=== PATIENT | female | born 1980 | race Caucasian/White ===

== ENCOUNTER → 2019-08-28 | Outpatient (REF) | payer MEDICARE, OTHER, MEDICAID | LOC: M LAB REF 18:50 | PROVIDERS: ATTEND Nurse Practitioner Family | DX: Z12.4 Encounter for screening for malignant neoplasm of cervix (principal) ==

== ENCOUNTER → 2019-08-28 | Outpatient (REF) | payer MEDICARE, OTHER, MEDICAID | LOC: M PLALAB 15:10 | PROVIDERS: ATTEND Nurse Practitioner Family | DX: Z12.4 Encounter for screening for malignant neoplasm of cervix (principal); Z53.8 Procedure and treatment not carried out for other reasons ==

== ENCOUNTER → 2019-08-28 | Outpatient (CLI) | payer MEDICARE, BC, MEDICAID ==
--- NOTE | 2019-08-28 16:13 | REPMRS ---
Patient History The patient states she had a clinical breast exam in 08/2019. Patient is nulliparous. No known family history of cancer. Taking hormonal contraceptives for 22 years beginning at age 17. 3D TOMOSYNTHESIS WAS PERFORMED. The [facility] lifetime risk for breast cancer is 14.7%. Digital Woman Screen Mammo: August 28, 2019 - Exam #: [id number] Bilateral CC and MLO view(s) were taken. Technologist: Julia Tang, Technologist No prior studies available for comparison. FINDINGS: The breast tissue is heterogeneously dense. This may lower the sensitivity of mammography. There is no evidence of cancer on this mammogram. Assessment: BI-RADS/ACR category 2 mammogram. Benign Findings. Recommendation Routine screening mammogram of both breasts in 1 year (for women over age 40). This mammogram was interpreted with the aid of an FDA-approved computer-aided dectection system. Electronically Signed By: Ermias Montanez MD 08/28/19 [id number]
== END ==
LOC: M WHC 14:58
PROVIDERS: ATTEND Nurse Practitioner Family
DX: Z01.419 Encounter for gynecological examination (general) (routine) without abnormal findings (principal); Z12.31 Encounter for screening mammogram for malignant neoplasm of breast; Z92.0 Personal history of contraception
CPT/HCPCS: 77063; 77067; G0101; G0123

== ENCOUNTER → 2020-09-01 | Outpatient (CLI) | payer MEDICARE, OTHER, MEDICAID ==
--- NOTE | 2020-09-01 16:18 | REPMRS ---
Patient History The patient states she had a clinical breast exam in August 2020. No known family history of cancer. Taking hormonal contraceptives for 22 years beginning at age 17. Digital Woman Screen Mammo: September 01, 2020 - Exam #: [id number] Bilateral CC and MLO view(s) were taken. Technologist: Celeste Benavides, Technologist Prior study comparison: August 28, 2019, bilateral digital woman screen mammo performed at [facility]. FINDINGS: There are scattered fibroglandular densities. The Volpara volumetric breast density category is:B. There has been no change in the appearance of the mammogram from the prior studies. There is a mild amount of scattered fibroglandular density which is fairly symmetric. There is no interval development of dominant mass, architectural distortion, or grouped microcalcification suggestive of malignancy. 3-D tomosynthesis shows no additional findings. Assessment: BI-RADS/ACR category 1 mammogram. Negative Mammogram. Recommendation Routine screening mammogram of both breasts in 1 year (for women over age 40). This patient's Lifetime Breast Cancer Risk is estimated at 14.5 %. This mammogram was interpreted with the aid of an FDA-approved computer-aided dectection system. Electronically Signed By: Pascual Oliver MD 09/01/20 [id number]
== END ==
LOC: M WHC 14:38
PROVIDERS: ATTEND Nurse Practitioner Family
DX: Z12.31 Encounter for screening mammogram for malignant neoplasm of breast (principal); Z92.0 Personal history of contraception

== ENCOUNTER → 2022-02-15 | Outpatient (CLI) | payer MEDICARE, OTHER, MEDICAID ==
[2022-02-15 14:01] LABS: BASO # 0.1 10^3/uL (0.0-0.2); EOS % 0.2 % (0.0-3.0); HEMATOCRIT 41.7 % (36.0-47.0); HEMOGLOBIN 13.8 g/dl (12.0-15.5); LYMPH # 1.3 10^3/uL (1.5-5.0); LYMPH % 22.9 % (24.0-44.0); MEAN CORPUSCULAR HEMOGLOBIN 33.2 pg (27.0-33.0); MEAN CORPUSCULAR HGB CONC 33.1 g/dl (32.0-36.5); MEAN CORPUSCULAR VOLUME 100.2 fl (80.0-96.0); MONO # 0.5 10^3/uL (0.0-0.8); NEUTROPHILS # 3.9 10^3/uL (1.5-8.5); NEUTROPHILS % 66.6 % (36.0-66.0); PLATELET COUNT, AUTOMATED 264 10^3/uL (150-450); RED BLOOD COUNT 4.16 10^6/uL (4.00-5.40); WHITE BLOOD COUNT 5.9 10^3/uL (4.0-10.0)
[2022-02-15 14:38] LABS: ALBUMIN 2.8 GM/DL (3.2-5.2); ALT/SGPT 21 U/L (12-78); BILIRUBIN,TOTAL 0.2 MG/DL (0.2-1.0); BLOOD UREA NITROGEN 11 MG/DL (7-18); CALCIUM LEVEL 9.1 MG/DL (8.5-10.1); CARBON DIOXIDE LEVEL 27 MEQ/L (21-32); CHLORIDE LEVEL 111 MEQ/L (98-107); CREATININE FOR GFR 0.88 MG/DL (0.55-1.30); FREE T4 1.19 NG/DL (0.76-1.46); GLOMERULAR FILTRATION RATE > 60.0 (>58); GLUCOSE, FASTING 96 MG/DL (70-100); POTASSIUM SERUM 4.2 MEQ/L (3.5-5.1); RHEUMATOID FACTOR QUANT < 10.0 IU/ML (<15.0); SODIUM LEVEL 144 MEQ/L (136-145); THYROID STIMULATING HORMONE 0.017 uIU/ML (0.358-3.740); TOTAL PROTEIN 6.6 GM/DL (6.4-8.2); VITAMIN B12 LEVEL 540 PG/ML (247-911)
[2022-02-15 14:51] LABS: ERYTHROCYTE SEDIMENTATION RATE 12 mm/hr (0-20)
[2022-02-19 14:27] LABS: FOLATE 18.7 NG/ML (>5.4)
[2022-02-28 23:06] LABS: ANTINUCLEAR ANTIBODIES DIRECT Negative (Negative); VITAMIN B1 LEVEL WHOLE BLOOD 132.7 nmol/L (66.5-200.0); VITAMIN B6,PYRIDOXAL PHOSPHATE 81.6 ug/L (3.4-65.2); VITAMIN E(ALPHA TOCOPHEROL) 12.4 mg/L (7.0-25.1); VITAMIN E(GAMMA TOCOPHEROL) 0.4 mg/L (0.5-5.5)
== END ==
LOC: M PLALAB 09:20
PROVIDERS: ATTEND Psychiatry & Neurology Neurology
DX: E07.9 Disorder of thyroid, unspecified (principal); E53.8 Deficiency of other specified B group vitamins; R41.3 Other amnesia

== ENCOUNTER → 2022-11-05 | Outpatient (CLI) | payer MEDICARE, MEDICAID, BC, OTHER ==
[2022-11-05 15:35] LABS: BASO # 0.1 10^3/uL (0.0-0.2); EOS % 0.3 % (0.0-3.0); HEMATOCRIT 43.5 % (36.0-47.0); HEMOGLOBIN 14.1 g/dl (12.0-15.5); LYMPH # 1.5 10^3/uL (1.5-5.0); LYMPH % 20.5 % (24.0-44.0); MEAN CORPUSCULAR HEMOGLOBIN 33.6 pg (27.0-33.0); MEAN CORPUSCULAR HGB CONC 32.4 g/dl (32.0-36.5); MEAN CORPUSCULAR VOLUME 103.6 fl (80.0-96.0); MONO # 0.7 10^3/uL (0.0-0.8); MONO % 10.4 % (2.0-8.0); NEUTROPHILS # 4.8 10^3/uL (1.5-8.5); NEUTROPHILS % 67.1 % (36.0-66.0); PLATELET COUNT, AUTOMATED 257 10^3/uL (150-450); WHITE BLOOD COUNT 7.1 10^3/uL (4.0-10.0)
[2022-11-05 16:07] LABS: ALBUMIN 2.7 G/DL (3.2-5.2); ALKALINE PHOSPHATASE 49 U/L (46-116); ALT/SGPT 12 U/L (7.0-40); AST/SGOT 20 U/L (<34); BILIRUBIN,TOTAL 0.3 MG/DL (0.3-1.2); BLOOD UREA NITROGEN 14 MG/DL (9-23); CALCIUM LEVEL 8.5 MG/DL (8.5-10.1); CARBON DIOXIDE LEVEL 33 MMOL/L (20-31); CHLORIDE LEVEL 101 MMOL/L (98-107); CREATININE FOR GFR 0.99 MG/DL (0.55-1.30); GLOMERULAR FILTRATION RATE > 60.0 (>58); GLUCOSE, FASTING 88 MG/DL (60-100); POTASSIUM SERUM 4.6 MMOL/L (3.5-5.1); SODIUM LEVEL 139 MMOL/L (136-145); TOTAL PROTEIN 6.4 G/DL (5.7-8.2)
== END ==
LOC: M PLALAB 12:08
PROVIDERS: ATTEND Psychiatry & Neurology Neurology
DX: G40.89 Other seizures (principal)

== ENCOUNTER 2023-10-27 10:50 | Inpatient (IN) | payer MEDICARE, BC, OTHER, MEDICAID ==
[~2023-10-27] VITALS: Ht 149.9 cm; Wt 68.8 kg
[2023-10-28 10:07] VITALS: BP 129/84; TEMP 98.2; O2SAT 96
[2023-10-28] MEDS ORDERED: ACETAMINOPHEN TAB 650MG DOSE (2X325MG) PO PRN (10:15)
[2023-10-28] MEDS ORDERED: MIRALAX *UNIT DOSE* 17GM PACKET PO PRN (10:15)
[2023-10-28] MEDS ORDERED: MED REC IN PROGRESS XX SCH (13:50)
[2023-10-28 14:00] VITALS: BP 126/77; TEMP 98.1; O2SAT 96
[2023-10-28] MEDS ORDERED: B-12100010 PO (14:36)
[2023-10-28] MEDS ORDERED: CALTTAB6 PO (14:36)
[2023-10-28] MEDS ORDERED: CITA20TA7 PO (14:36)
[2023-10-28] MEDS ORDERED: LEVO75TA4 PO (14:36)
[2023-10-28] MEDS ORDERED: VITA200012 PO (14:36)
[2023-10-28] MEDS ORDERED: THERTAB52 PO (14:36)
[2023-10-28] MEDS ORDERED: NORT0.5T2 PO (14:36)
[2023-10-28] MEDS ORDERED: HOME MED LIST COMPLETE! XX SCH (14:40)
[2023-10-28] MEDS: CitaloPRAM (CeleXA) 20 MG TAB PO SCH (16:46)
[2023-10-28] MEDS: NITROFURANTOIN (MACROBID) 100 MG CAP PO SCH (20:15)
[2023-10-28 20:17] VITALS: BP 105/57; TEMP 96.5; O2SAT 96
[2023-10-29] MEDS: LEVOTHYROXINE 75MCG TABLET (0.075MG) PO SCH (05:35)
[2023-10-29 05:37] VITALS: BP 140/78; TEMP 98; O2SAT 95
[2023-10-29] MEDS: CALCIUM/VITAMIN D 500 MG TAB PO SCH (07:40)
[2023-10-29] MEDS: CitaloPRAM (CeleXA) 20 MG TAB PO SCH (07:41)
[2023-10-29] MEDS: ASPIRIN 81MG ENTERIC TABLET PO SCH (07:41)
[2023-10-29] MEDS: CYANOCOBALAMIN 500 MCG TAB PO SCH (07:41)
[2023-10-29] MEDS: MULTIVITAMINS/MINERALS THERAP 1 TAB PO SCH (07:41)
[2023-10-29] MEDS: ATORVASTATIN 20 MG TAB PO SCH (07:41)
[2023-10-29] MEDS: NITROFURANTOIN (MACROBID) 100 MG CAP PO SCH ×2 (07:41→20:10)
[2023-10-29] MEDS: ENOXAPARIN 40MG/0.4ML SYRINGE (J1650 PER 10MG) SC SCH (07:42)
[2023-10-29 07:55] LABS: BASO # 0.1 10^3/uL (0.0-0.2); BASO % 2.1 % (0.0-1.0); EOS # 0.1 10^3/uL (0.0-0.5); EOS % 2.7 % (0.0-3.0); HEMATOCRIT 40.3 % (36.0-47.0); HEMOGLOBIN 13.3 g/dl (12.0-15.5); LYMPH # 1.5 10^3/uL (1.5-5.0); LYMPH % 28.5 % (24.0-44.0); MEAN CORPUSCULAR HEMOGLOBIN 33.8 pg (27.0-33.0); MEAN CORPUSCULAR VOLUME 102.5 fl (80.0-96.0); MONO # 0.7 10^3/uL (0.0-0.8); MONO % 13.3 % (2.0-8.0); NEUTROPHILS # 2.8 10^3/uL (1.5-8.5); NEUTROPHILS % 52.8 % (36.0-66.0); PLATELET COUNT, AUTOMATED 268 10^3/uL (150-450); RED BLOOD COUNT 3.93 10^6/uL (4.00-5.40); WHITE BLOOD COUNT 5.3 10^3/uL (4.0-10.0)
[2023-10-29 08:14] LABS: BLOOD UREA NITROGEN 19 MG/DL (9-23); CALCIUM LEVEL 8.1 MG/DL (8.5-10.1); CARBON DIOXIDE LEVEL 26 MMOL/L (20-31); CHLORIDE LEVEL 110 MMOL/L (98-107); CREATININE FOR GFR 0.89 MG/DL (0.55-1.30); GLOMERULAR FILTRATION RATE > 60.0 (>58); GLUCOSE, FASTING 96 MG/DL (60-100); POTASSIUM SERUM 4.3 MMOL/L (3.5-5.1); SODIUM LEVEL 142 MMOL/L (136-145)
[2023-10-29] MEDS ORDERED: estradioL 0.5MG HALF-TAB PO SCH (09:00)
[2023-10-29 14:00] VITALS: BP 98/58; TEMP 97.4; O2SAT 95
[2023-10-29 20:00] VITALS: BP 104/58; TEMP 98.4; O2SAT 97
[2023-10-30 06:40] VITALS: BP 113/69; TEMP 98.5; O2SAT 94
[2023-10-30] MEDS: LEVOTHYROXINE 75MCG TABLET (0.075MG) PO SCH (06:41)
[2023-10-30] MEDS: ENOXAPARIN 40MG/0.4ML SYRINGE (J1650 PER 10MG) SC SCH (07:29)
[2023-10-30] MEDS: ASPIRIN 81MG ENTERIC TABLET PO SCH (07:30)
[2023-10-30] MEDS: MULTIVITAMINS/MINERALS THERAP 1 TAB PO SCH (07:30)
[2023-10-30] MEDS: CALCIUM/VITAMIN D 500 MG TAB PO SCH (07:30)
[2023-10-30] MEDS: NITROFURANTOIN (MACROBID) 100 MG CAP PO SCH ×2 (07:30→20:06)
[2023-10-30] MEDS: CitaloPRAM (CeleXA) 20 MG TAB PO SCH (07:30)
[2023-10-30] MEDS: ATORVASTATIN 20 MG TAB PO SCH (07:30)
[2023-10-30] MEDS: CYANOCOBALAMIN 500 MCG TAB PO SCH (07:30)
[2023-10-30 14:00] VITALS: BP 103/59; TEMP 97.9; O2SAT 94
[2023-10-30 20:00] VITALS: BP 122/73; TEMP 99; O2SAT 95
[2023-10-31] MEDS: LEVOTHYROXINE 75MCG TABLET (0.075MG) PO SCH (05:52)
[2023-10-31 06:00] VITALS: BP 112/66; TEMP 99; O2SAT 96
[2023-10-31 06:36] LABS: HEMATOCRIT 42.5 % (36.0-47.0); HEMOGLOBIN 13.9 g/dl (12.0-15.5); MEAN CORPUSCULAR HEMOGLOBIN 33.9 pg (27.0-33.0); MEAN CORPUSCULAR HGB CONC 32.7 g/dl (32.0-36.5); MEAN CORPUSCULAR VOLUME 103.7 fl (80.0-96.0); PLATELET COUNT, AUTOMATED 306 10^3/uL (150-450); WHITE BLOOD COUNT 5.8 10^3/uL (4.0-10.0)
[2023-10-31] MEDS: CALCIUM/VITAMIN D 500 MG TAB PO SCH (08:18)
[2023-10-31] MEDS: CYANOCOBALAMIN 500 MCG TAB PO SCH (08:18)
[2023-10-31] MEDS: ENOXAPARIN 40MG/0.4ML SYRINGE (J1650 PER 10MG) SC SCH (08:18)
[2023-10-31] MEDS: NITROFURANTOIN (MACROBID) 100 MG CAP PO SCH (08:18)
[2023-10-31] MEDS: CitaloPRAM (CeleXA) 20 MG TAB PO SCH (08:18)
[2023-10-31] MEDS: ATORVASTATIN 20 MG TAB PO SCH (08:18)
[2023-10-31] MEDS: MULTIVITAMINS/MINERALS THERAP 1 TAB PO SCH (08:18)
[2023-10-31] MEDS: ASPIRIN 81MG ENTERIC TABLET PO SCH (08:18)
[2023-10-31 14:00] VITALS: BP 102/53; TEMP 98.4; O2SAT 95
[2023-10-31 20:00] VITALS: BP 119/57; TEMP 98.4; O2SAT 96
[2023-11-01 06:00] VITALS: BP 112/59; TEMP 97.9; O2SAT 95
[2023-11-01] MEDS: LEVOTHYROXINE 75MCG TABLET (0.075MG) PO SCH (06:06)
[2023-11-01] MEDS: CYANOCOBALAMIN 500 MCG TAB PO SCH (08:29)
[2023-11-01] MEDS: ASPIRIN 81MG ENTERIC TABLET PO SCH (08:29)
[2023-11-01] MEDS: ATORVASTATIN 20 MG TAB PO SCH (08:29)
[2023-11-01] MEDS: CALCIUM/VITAMIN D 500 MG TAB PO SCH (08:29)
[2023-11-01] MEDS: ENOXAPARIN 40MG/0.4ML SYRINGE (J1650 PER 10MG) SC SCH (08:29)
[2023-11-01] MEDS: CitaloPRAM (CeleXA) 20 MG TAB PO SCH (08:29)
[2023-11-01] MEDS: MULTIVITAMINS/MINERALS THERAP 1 TAB PO SCH (08:29)
[2023-11-01 14:00] VITALS: BP 124/79; TEMP 97.5; O2SAT 97
[2023-11-01 20:00] VITALS: BP 119/58; TEMP 98.3; O2SAT 95
[2023-11-02] MEDS: LEVOTHYROXINE 75MCG TABLET (0.075MG) PO SCH (05:07)
[2023-11-02 06:00] VITALS: BP 126/74; TEMP 98.2; O2SAT 95
[2023-11-02] MEDS: CitaloPRAM (CeleXA) 20 MG TAB PO SCH (07:14)
[2023-11-02] MEDS: ATORVASTATIN 20 MG TAB PO SCH (07:14)
[2023-11-02] MEDS: MULTIVITAMINS/MINERALS THERAP 1 TAB PO SCH (07:14)
[2023-11-02] MEDS: CALCIUM/VITAMIN D 500 MG TAB PO SCH (07:14)
[2023-11-02] MEDS: ASPIRIN 81MG ENTERIC TABLET PO SCH (07:15)
[2023-11-02] MEDS: CYANOCOBALAMIN 500 MCG TAB PO SCH (07:15)
[2023-11-02] MEDS: ENOXAPARIN 40MG/0.4ML SYRINGE (J1650 PER 10MG) SC SCH (07:15)
[2023-11-02 14:00] VITALS: BP 105/64; TEMP 98.3; O2SAT 95
[2023-11-02 20:00] VITALS: BP 115/65; TEMP 98.2; O2SAT 96
[2023-11-03 05:50] VITALS: BP 107/59; TEMP 98.5; O2SAT 96
[2023-11-03] MEDS: LEVOTHYROXINE 75MCG TABLET (0.075MG) PO SCH (05:58)
[2023-11-03 06:06] LABS: HEMATOCRIT 40.4 % (36.0-47.0); HEMOGLOBIN 13.3 g/dl (12.0-15.5); MEAN CORPUSCULAR HGB CONC 32.9 g/dl (32.0-36.5); MEAN CORPUSCULAR VOLUME 103.3 fl (80.0-96.0); PLATELET COUNT, AUTOMATED 278 10^3/uL (150-450); RED BLOOD COUNT 3.91 10^6/uL (4.00-5.40); WHITE BLOOD COUNT 6.2 10^3/uL (4.0-10.0)
[2023-11-03] MEDS: ENOXAPARIN 40MG/0.4ML SYRINGE (J1650 PER 10MG) SC SCH (07:31)
[2023-11-03] MEDS: CALCIUM/VITAMIN D 500 MG TAB PO SCH (07:32)
[2023-11-03] MEDS: MULTIVITAMINS/MINERALS THERAP 1 TAB PO SCH (07:32)
[2023-11-03] MEDS: ASPIRIN 81MG ENTERIC TABLET PO SCH (07:32)
[2023-11-03] MEDS: CYANOCOBALAMIN 500 MCG TAB PO SCH (07:32)
[2023-11-03] MEDS: ATORVASTATIN 20 MG TAB PO SCH (07:32)
[2023-11-03] MEDS: CitaloPRAM (CeleXA) 20 MG TAB PO SCH (07:32)
[2023-11-03 14:00] VITALS: BP 109/59; TEMP 97.1; O2SAT 96
[2023-11-03 19:47] VITALS: BP 121/55; TEMP 98.8; O2SAT 93
[2023-11-04 05:27] VITALS: BP 121/72; TEMP 97.5; O2SAT 95
[2023-11-04] MEDS: LEVOTHYROXINE 75MCG TABLET (0.075MG) PO SCH (06:15)
[2023-11-04] MEDS ORDERED: ATOR1TAB21 PO (08:24)
[2023-11-04] MEDS ORDERED: ASPI81TAEC PO (08:24)
[2023-11-04] MEDS: ASPIRIN 81MG ENTERIC TABLET PO SCH (08:35)
[2023-11-04] MEDS: CitaloPRAM (CeleXA) 20 MG TAB PO SCH (08:36)
[2023-11-04] MEDS: ENOXAPARIN 40MG/0.4ML SYRINGE (J1650 PER 10MG) SC SCH (08:36)
[2023-11-04] MEDS: CYANOCOBALAMIN 500 MCG TAB PO SCH (08:36)
[2023-11-04] MEDS: ATORVASTATIN 20 MG TAB PO SCH (08:36)
[2023-11-04] MEDS: CALCIUM/VITAMIN D 500 MG TAB PO SCH (08:36)
[2023-11-04] MEDS: MULTIVITAMINS/MINERALS THERAP 1 TAB PO SCH (08:36)
[2023-11-04] MEDS ORDERED: NORT0.5T2 PO (11:21)
== END 2023-11-04 11:50 | disposition home or self-care (01) | DRG 65 ==
LOC: M PM&R 10-28 09:31
PROVIDERS: ADMIT Student in an Organized Health Care Education/Training Program; ATTEND Physical Medicine & Rehabilitation
DX: I63.9 Cerebral infarction, unspecified (principal); N39.0 Urinary tract infection, site not specified; Q21.12 Patent foramen ovale; E03.9 Hypothyroidism, unspecified; B96.20 Unspecified Escherichia coli [E. coli] as the cause of diseases classified elsewhere; F32.A Depression, unspecified; Q90.9 Down syndrome, unspecified; N92.6 Irregular menstruation, unspecified; G40.A09 Absence epileptic syndrome, not intractable, without status epilepticus; Z79.899 Other long term (current) drug therapy; Z79.82 Long term (current) use of aspirin

== ENCOUNTER 2023-11-22 10:28 | Emergency (ER) | payer MEDICARE, BC, OTHER, MEDICAID ==
[~2023-11-22 10:28] MED LIST: ASPI81TAEC PO; ATOR1TAB21 PO; B-12100010 PO; CALTTAB6 PO; CITA20TA7 PO; LEVO75TA4 PO; NORT0.5T2 PO; THERTAB52 PO; VITA200012 PO
[2023-11-22 12:20] LABS: BASO # 0.1 10^3/uL (0.0-0.2); BASO % 1.8 % (0.0-1.0); EOS # 0.1 10^3/uL (0.0-0.5); EOS % 1.2 % (0.0-3.0); HEMATOCRIT 42.6 % (36.0-47.0); LYMPH # 1.7 10^3/uL (1.5-5.0); LYMPH % 29.3 % (24.0-44.0); MEAN CORPUSCULAR HEMOGLOBIN 33.6 pg (27.0-33.0); MEAN CORPUSCULAR HGB CONC 32.9 g/dl (32.0-36.5); MEAN CORPUSCULAR VOLUME 102.2 fl (80.0-96.0); MONO # 0.7 10^3/uL (0.0-0.8); MONO % 11.5 % (2.0-8.0); NEUTROPHILS # 3.2 10^3/uL (1.5-8.5); NEUTROPHILS % 55.8 % (36.0-66.0); PLATELET COUNT, AUTOMATED 233 10^3/uL (150-450); RED BLOOD COUNT 4.17 10^6/uL (4.00-5.40); WHITE BLOOD COUNT 5.6 10^3/uL (4.0-10.0)
[2023-11-22 12:44] LABS: BLOOD UREA NITROGEN 13 MG/DL (9-23); CALCIUM LEVEL 9.5 MG/DL (8.5-10.1); CARBON DIOXIDE LEVEL 32 MMOL/L (20-31); CHLORIDE LEVEL 107 MMOL/L (98-107); CREATININE FOR GFR 0.98 MG/DL (0.55-1.30); GLOMERULAR FILTRATION RATE > 60.0 (>58); GLUCOSE, FASTING 84 MG/DL (60-100); POTASSIUM SERUM 3.8 MMOL/L (3.5-5.1); SODIUM LEVEL 142 MMOL/L (136-145)
[2023-11-22 15:01] VITALS: BP 131/66; TEMP 97; O2SAT 98
== END 2023-11-22 15:23 | disposition home or self-care (01) ==
LOC: M ED 10:28
DX: Z45.09 Encounter for adjustment and management of other cardiac device (principal); Z86.73 Personal history of transient ischemic attack (TIA), and cerebral infarction without residual deficits; Z88.1 Allergy status to other antibiotic agents; Z88.2 Allergy status to sulfonamides; Z88.8 Allergy status to other drugs, medicaments and biological substances; Z86.79 Personal history of other diseases of the circulatory system; Z79.82 Long term (current) use of aspirin; Z79.810 Long term (current) use of selective estrogen receptor modulators (SERMs); Z79.02 Long term (current) use of antithrombotics/antiplatelets; Z79.899 Other long term (current) drug therapy

== ENCOUNTER → 2023-12-01 | Outpatient (RCR) | payer MEDICARE, BC, OTHER, MEDICAID | LOC: M OT 11-07 11:46 → M ST 11-18 13:30 → M OT 11-25 12:36 → M ST 12:09 | PROVIDERS: ATTEND Student in an Organized Health Care Education/Training Program | DX: I69.222 Dysarthria following other nontraumatic intracranial hemorrhage (principal) ==

== ENCOUNTER 2023-12-28 12:36 | Outpatient (RCR) | payer MEDICARE, BC, OTHER, MEDICAID | END 2024-01-01 | LOC: M OT 12:36 → M ST 12:36 | PROVIDERS: ATTEND Student in an Organized Health Care Education/Training Program | DX: I63.9 Cerebral infarction, unspecified (principal) ==

== ENCOUNTER 2024-01-17 08:50 | Outpatient (RCR) | payer MEDICARE, BC, OTHER, MEDICAID | END 2024-01-31 | LOC: M ST 08:50 | PROVIDERS: ATTEND Student in an Organized Health Care Education/Training Program | DX: I63.9 Cerebral infarction, unspecified (principal) ==

== ENCOUNTER → 2024-02-06 | Outpatient (CLI) | payer MEDICARE, BC, MEDICAID | LOC: M LAB 14:58 | PROVIDERS: ATTEND Nurse Practitioner Family | DX: E03.9 Hypothyroidism, unspecified (principal) ==

== ENCOUNTER → 2024-06-29 | Outpatient (CLI) | payer MEDICARE, BC, MEDICAID | LOC: M WUC 09:25 | PROVIDERS: ATTEND Physician Assistant | DX: Q90.9 Down syndrome, unspecified (principal) ==

== ENCOUNTER 2024-08-08 14:42 | Emergency (ER) | payer MEDICARE, BC, MEDICAID ==
[~2024-08-08] VITALS: Ht 152.4 cm; Wt 70.9 kg
[2024-08-08 16:53] VITALS: TEMP 98.2
[2024-08-08] MEDS ORDERED: LAMO100T3 (16:58)
[2024-08-08] MEDS ORDERED: LAMO25TA4 (16:58)
[2024-08-08] MEDS ORDERED: VITATAB31 (16:58)
[2024-08-08] MEDS ORDERED: CLOP75TA2 (16:58)
[2024-08-08] MEDS: ALBUTEROL SULFATE 2.5MG/0.5ML INH NEB SOLN INH ONE (18:00)
[2024-08-08] MEDS: IPRATROPIUM 0.5MG/ALBUTEROL 2.5MG INH SOL UD 3ML (DUONEB) NEB ONE (18:00)
[2024-08-08] MEDS ORDERED: ISOVUE-370 76% 100ML VIAL As Ordered ONE (18:17)
[2024-08-08 18:19] LABS: BASO # 0.1 10^3/uL (0.0-0.2); BASO % 1.8 % (0.0-1.0); EOS # 0.1 10^3/uL (0.0-0.5); EOS % 0.9 % (0.0-3.0); HEMATOCRIT 36.8 % (36.0-47.0); HEMOGLOBIN 12.3 g/dl (12.0-15.5); LYMPH # 1.7 10^3/uL (1.5-5.0); LYMPH % 23.6 % (24.0-44.0); MEAN CORPUSCULAR HEMOGLOBIN 32.2 pg (27.0-33.0); MEAN CORPUSCULAR HGB CONC 33.4 g/dl (32.0-36.5); MEAN CORPUSCULAR VOLUME 96.3 fl (80.0-96.0); MONO # 0.9 10^3/uL (0.0-0.8); MONO % 13.4 % (2.0-8.0); NEUTROPHILS # 4.2 10^3/uL (1.5-8.5); PLATELET COUNT, AUTOMATED 256 10^3/uL (150-450); RED BLOOD COUNT 3.82 10^6/uL (4.00-5.40)
[2024-08-08 18:44] LABS: BILIRUBIN,DIRECT 0.2 MG/DL (<0.4); BILIRUBIN,TOTAL 0.5 MG/DL (0.3-1.2); CALCIUM LEVEL 10.1 MG/DL (8.5-10.1); CK-MB VALUE MASS 1.7 NG/ML (<3.6); CREATININE FOR GFR 1.43 MG/DL (0.55-1.30); GLOMERULAR FILTRATION RATE 42.2 (>58); MB/CK RELATIVE INDEX 0.95 (< OR =4); POTASSIUM SERUM 3.6 MMOL/L (3.5-5.1); TOTAL PROTEIN 7.2 G/DL (5.7-8.2)
[2024-08-08 18:47] LABS: THYROXINE (T4) 5.9 UG/DL (4.5-10.9)
[2024-08-08 18:48] LABS: THYROID STIMULATING HORMONE 0.062 uIU/ML (0.55-4.78)
[2024-08-08 18:53] LABS: PROCALCITONIN 0.06 ng/ml
[2024-08-08 19:55] LABS: MB/CK RELATIVE INDEX 0.62 (< OR =4)
[2024-08-08 21:20] VITALS: BP 136/86; O2SAT 100
[2024-08-08] MEDS: ACETAMINOPHEN 325 MG TAB PO ONE (22:01)
== END 2024-08-08 22:07 | disposition home or self-care (01) ==
LOC: EDSEX 14:42 → M ED 14:42 → EDBD 14:42 → M ED 22:07
DX: R07.9 Chest pain, unspecified (principal); R06.00 Dyspnea, unspecified; I45.81 Long QT syndrome; Q90.9 Down syndrome, unspecified; G40.909 Epilepsy, unspecified, not intractable, without status epilepticus; E03.9 Hypothyroidism, unspecified; F41.9 Anxiety disorder, unspecified; Z79.82 Long term (current) use of aspirin; Z79.02 Long term (current) use of antithrombotics/antiplatelets; Z79.899 Other long term (current) drug therapy
CPT/HCPCS: 36415; 70450; 71045; 71275; 80047; 80048; 80076; 82550; 82553; 83605; 83880; 84145; 84436; 84443; 84484; 85025; 87040; 87486; 87581; 87633; 87798; 93005; 93041; 93970; 94640; 94760; 99285; Q9967

== ENCOUNTER → 2024-10-17 | Outpatient (REF) | payer MEDICARE, BC, MEDICAID ==
[~2024-10-17] MED LIST changes: +CLOP75TA2; +LAMO100T3; +LAMO25TA4; +VITATAB31
[2024-10-17 17:12] LABS: ALBUMIN 3.1 G/DL (3.2-5.2); ALKALINE PHOSPHATASE 142 U/L (35-104); ALT/SGPT 14 U/L (7.0-40); AST/SGOT 22 U/L (<34); BASO # 0.1 10^3/uL (0.0-0.2); BASO % 1.8 % (0.0-1.0); BILIRUBIN,TOTAL 0.4 MG/DL (0.3-1.2); BLOOD UREA NITROGEN 17 MG/DL (9-23); CALCIUM LEVEL 9.1 MG/DL (8.5-10.1); CARBON DIOXIDE LEVEL 31 MMOL/L (20-31); CHLORIDE LEVEL 104 MMOL/L (98-107); CHOLESTEROL LEVEL 118 MG/DL (<200); CHOLESTEROL RISK RATIO 2.41 (<5); CREATININE FOR GFR 0.98 MG/DL (0.55-1.30); EOS # 0.2 10^3/uL (0.0-0.5); FREE T4 1.13 NG/DL (0.89-1.76); GLOMERULAR FILTRATION RATE > 60.0 (>58); GLUCOSE, FASTING 96 MG/DL (60-100); HDL CHOLESTEROL 48.9 MG/DL (>40); HEMATOCRIT 39.2 % (36.0-47.0); HEMOGLOBIN 12.7 g/dl (12.0-15.5); LDL CHOLESTEROL 54.1 MG/DL (<100); LYMPH # 1.4 10^3/uL (1.5-5.0); LYMPH % 28.2 % (24.0-44.0); MEAN CORPUSCULAR HEMOGLOBIN 32.1 pg (27.0-33.0); MEAN CORPUSCULAR HGB CONC 32.4 g/dl (32.0-36.5); MONO # 0.5 10^3/uL (0.0-0.8); MONO % 10.2 % (2.0-8.0); NEUTROPHILS # 2.8 10^3/uL (1.5-8.5); NEUTROPHILS % 56.4 % (36.0-66.0); NON-HDL-C 69.1 MG/DL; PLATELET COUNT, AUTOMATED 254 10^3/uL (150-450); POTASSIUM SERUM 3.9 MMOL/L (3.5-5.1); RED BLOOD COUNT 3.96 10^6/uL (4.00-5.40); SODIUM LEVEL 143 MMOL/L (136-145); THYROID STIMULATING HORMONE 0.024 uIU/ML (0.55-4.78); TOTAL PROTEIN 6.7 G/DL (5.7-8.2); TRIGLYCERIDES LEVEL 75 MG/DL (<150)
[2024-10-17 17:25] LABS: HEMOGLOBIN A1c 5.2 % (4.0-6.0)
== END ==
LOC: M SFHCCLAY 13:35
PROVIDERS: ATTEND Nurse Practitioner Family
DX: E03.9 Hypothyroidism, unspecified (principal); G40.A09 Absence epileptic syndrome, not intractable, without status epilepticus; Z86.73 Personal history of transient ischemic attack (TIA), and cerebral infarction without residual deficits; R92.8 Other abnormal and inconclusive findings on diagnostic imaging of breast; Z87.74 Personal history of (corrected) congenital malformations of heart and circulatory system; Z79.899 Other long term (current) drug therapy

== ENCOUNTER 2025-01-03 00:59 | Emergency (ER) | payer MEDICARE, BC ==
[~2025-01-03] VITALS: Ht 152.4 cm; Wt 70.0 kg
[2025-01-03] MEDS: AMPICILLIN SOD/SULBACTAM SOD 3 GM in DEXTROSE 5% (D5W) MINI-BAG PLU 100 ML IV ONE (02:07)
[2025-01-03 02:35] LABS: BASO # 0.1 10^3/uL (0.0-0.2); BASO % 0.9 % (0.0-1.0); EOS # 0.1 10^3/uL (0.0-0.5); EOS % 1.4 % (0.0-3.0); HEMATOCRIT 39.7 % (36.0-47.0); HEMOGLOBIN 13.4 g/dl (12.0-15.5); LYMPH # 1.3 10^3/uL (1.5-5.0); LYMPH % 18.9 % (24.0-44.0); MEAN CORPUSCULAR HEMOGLOBIN 32.1 pg (27.0-33.0); MEAN CORPUSCULAR HGB CONC 33.8 g/dl (32.0-36.5); MEAN CORPUSCULAR VOLUME 95.2 fl (80.0-96.0); MONO # 0.5 10^3/uL (0.0-0.8); MONO % 7.7 % (2.0-8.0); NEUTROPHILS # 4.9 10^3/uL (1.5-8.5); NEUTROPHILS % 70.8 % (36.0-66.0); PLATELET COUNT, AUTOMATED 212 10^3/uL (150-450); RED BLOOD COUNT 4.17 10^6/uL (4.00-5.40); WHITE BLOOD COUNT 6.9 10^3/uL (4.0-10.0)
[2025-01-03 02:40] VITALS: TEMP 97
[2025-01-03 02:51] LABS: KETONE, URINE AUTO RFX NEGATIVE (NEGATIVE); MUCUS, URINE RFX SMALL (NEGATIVE); RBC, URINE AUTO RFX 1 /HPF (0-3); SQUAM EPITHELIAL CELL UR AURFX 1 /HPF (0-6)
[2025-01-03 02:52] LABS: LEUKOCYTE ESTERASE UR AUTO RFX 2+ (NEGATIVE); NITRITE, URINE AUTO RFX POSITIVE (NEGATIVE); WBC, URINE AUTO RFX 14 /HPF (0-3)
[2025-01-03 02:54] VITALS: BP 112/64; O2SAT 97
[2025-01-03 03:05] LABS: ALBUMIN 3.2 G/DL (3.2-5.2); ALKALINE PHOSPHATASE 119 U/L (35-104); ALT/SGPT 18 U/L (7.0-40); AST/SGOT 43 U/L (<34); BILIRUBIN,TOTAL 0.6 MG/DL (0.3-1.2); BLOOD UREA NITROGEN 19 MG/DL (9-23); CALCIUM LEVEL 8.1 MG/DL (8.5-10.1); CARBON DIOXIDE LEVEL 24 MMOL/L (20-31); CHLORIDE LEVEL 106 MMOL/L (98-107); CREATININE FOR GFR 1.01 MG/DL (0.55-1.30); GLOMERULAR FILTRATION RATE > 60.0 (>58); GLUCOSE, FASTING 130 MG/DL (60-100); POTASSIUM SERUM 5.3 MMOL/L (3.5-5.1); SODIUM LEVEL 138 MMOL/L (136-145); TOTAL PROTEIN 6.2 G/DL (5.7-8.2)
== END 2025-01-03 03:06 | disposition short-term general hospital (02) ==
LOC: EDBD 00:59 → M ED 00:59 → EDSEX 00:59 → M ED 03:06
DX: S06.6X0A Traumatic subarachnoid hemorrhage without loss of consciousness, initial encounter (principal); S02.32XA Fracture of orbital floor, left side, initial encounter for closed fracture; S02.82XA Fracture of other specified skull and facial bones, left side, initial encounter for closed fracture; S02.40DA Maxillary fracture, left side, initial encounter for closed fracture; W01.198A Fall on same level from slipping, tripping and stumbling with subsequent striking against other object, initial encounter; Z79.01 Long term (current) use of anticoagulants; Z88.2 Allergy status to sulfonamides; Z88.1 Allergy status to other antibiotic agents; Z79.82 Long term (current) use of aspirin; Z79.02 Long term (current) use of antithrombotics/antiplatelets; Z79.899 Other long term (current) drug therapy; Y92.009 Unspecified place in unspecified non-institutional (private) residence as the place of occurrence of the external cause; Y93.89 Activity, other specified; Y99.9 Unspecified external cause status
CPT/HCPCS: 70450; 70486; 72125; 80053; 81001; 85025; 87088; 87186; 96374; 99284; J0295

== ENCOUNTER → 2025-06-22 | Outpatient (REF) | payer MEDICARE, BC, MEDICAID ==
[~2025-06-22] MED LIST changes: +LAMO-18; -LAMO25TA4
== END ==
LOC: M LAB REF 14:28
PROVIDERS: ATTEND Physician Assistant Medical
DX: R30.0 Dysuria (principal)

== ENCOUNTER 2025-07-21 15:31 | Emergency (ER) | payer MEDICARE, BC, MEDICAID ==
[~2025-07-21] VITALS: Ht 149.9 cm; Wt 62.8 kg
[~2025-07-21 15:31] MED LIST changes: -CLOP75TA2; +CLOP75TA2 PO; -LAMO-18; +LAMO-18 PO; -LAMO100T3; +LAMO100T3 PO; -VITATAB31; +VITATAB31 PO
[2025-07-21 16:07] LABS: BASO # 0.1 10^3/uL (0.0-0.2); BASO % 1.0 % (0.0-1.0); EOS # 0.2 10^3/uL (0.0-0.5); EOS % 2.5 % (0.0-3.0); LYMPH # 1.7 10^3/uL (1.5-5.0); LYMPH % 22.9 % (24.0-44.0); MONO # 0.9 10^3/uL (0.0-0.8); MONO % 11.7 % (2.0-8.0); NEUTROPHILS # 4.5 10^3/uL (1.5-8.5); NEUTROPHILS % 61.5 % (36.0-66.0); PLATELET COUNT, AUTOMATED 375 10^3/uL (150-450)
[2025-07-21 16:30] LABS: CALCIUM LEVEL 7.7 MG/DL (8.5-10.1); CARBON DIOXIDE LEVEL 26.0 MMOL/L (20-31); CHLORIDE LEVEL 105.0 MMOL/L (98-107); CREATININE FOR GFR 0.91 MG/DL (0.55-1.30); GLOMERULAR FILTRATION RATE 78.8 (>58); POTASSIUM SERUM 4.8 MMOL/L (3.5-5.1); SODIUM LEVEL 142.0 MMOL/L (136-145)
[2025-07-21] MEDS: levETIRAcetam INJection 1,000 MG in IV 1 EA IV ONE (17:50)
[2025-07-21] MEDS ORDERED: KEPP1TAB2 PO (17:57)
[2025-07-21 18:54] VITALS: BP 104/61; TEMP 98.4; O2SAT 95
[2025-07-22] MEDS ORDERED: CITA10TA7 PO (19:09)
[2025-07-22] MEDS ORDERED: ATOR80TA59 PO (19:09)
[2025-07-22] MEDS ORDERED: KEPP1TAB2 PO (19:09)
[2025-07-22] MEDS ORDERED: SPIR-10 PO (19:11)
[2025-07-22] MEDS ORDERED: HYDR50TA70 PO (19:11)
[2025-07-22] MEDS ORDERED: IBUP200T46 PO (19:11)
[2025-07-22] MEDS ORDERED: COLC0.6T53 PO (19:11)
== END 2025-07-21 18:59 | disposition home or self-care (01) ==
LOC: M ED 15:31
DX: G40.909 Epilepsy, unspecified, not intractable, without status epilepticus (principal); Z88.2 Allergy status to sulfonamides; Z88.1 Allergy status to other antibiotic agents; Z88.8 Allergy status to other drugs, medicaments and biological substances; Z79.899 Other long term (current) drug therapy; Z79.02 Long term (current) use of antithrombotics/antiplatelets; Z79.1 Long term (current) use of non-steroidal anti-inflammatories (NSAID)
CPT/HCPCS: 70450; 80048; 80175; 85025; 96365; 99284; J1953

== ENCOUNTER 2025-07-22 09:51 | Observation (INO) | payer MEDICARE, BC, MEDICAID ==
[~2025-07-22] VITALS: Ht 149.9 cm; Wt 62.8 kg
[~2025-07-22 09:51] MED LIST changes: +KEPP1TAB2 PO
[2025-07-22 11:54] LABS: BASO # 0.1 10^3/uL (0.0-0.2); BASO % 1.0 % (0.0-1.0); EOS # 0.1 10^3/uL (0.0-0.5); EOS % 1.7 % (0.0-3.0); LYMPH # 1.6 10^3/uL (1.5-5.0); LYMPH % 22.3 % (24.0-44.0); MONO # 0.8 10^3/uL (0.0-0.8); MONO % 11.3 % (2.0-8.0); NEUTROPHILS # 4.4 10^3/uL (1.5-8.5); NEUTROPHILS % 63.3 % (36.0-66.0); PLATELET COUNT, AUTOMATED 440 10^3/uL (150-450)
[2025-07-22 12:11] LABS: VENOUS BASE EXCESS 2.0 (-2.0-2.0); VENOUS HCO3 28.3 MMOL/L (23.0-27.0); VENOUS O2 SATURATION 83.4 % (60.0-80.0); VENOUS PARTIAL PRESSURE CO2 52.4 mmHg (38.0-50.0); VENOUS PARTIAL PRESSURE O2 52.4 mmHg (30.0-50.0); VENOUS PH 7.351 UNITS (7.330-7.430); VENOUS STANDARD HCO3 26.0 MMOL/L; VENOUS TOTAL CO2 30.0 MMOL/L (24.0-28.0)
[2025-07-22 12:23] LABS: ALT/SGPT 19 U/L (7.0-40); AST/SGOT 30 U/L (<34); CALCIUM LEVEL 8.0 MG/DL (8.5-10.1); CARBON DIOXIDE LEVEL 27 MMOL/L (20-31); CHLORIDE LEVEL 106 MMOL/L (98-107); CREATININE FOR GFR 1.05 MG/DL (0.55-1.30); GLOMERULAR FILTRATION RATE 66.4 (>58); POTASSIUM SERUM 4.0 MMOL/L (3.5-5.1); SODIUM LEVEL 144 MMOL/L (136-145)
[2025-07-22] MEDS ORDERED: ACETAMINOPHEN 325 MG TAB PO PRN (18:30)
[2025-07-22] MEDS ORDERED: KEPP1TAB2 PO (19:09)
[2025-07-22] MEDS ORDERED: ATOR80TA59 PO (19:09)
[2025-07-22] MEDS ORDERED: CITA10TA7 PO (19:09)
[2025-07-22] MEDS ORDERED: IBUP200T46 PO (19:11)
[2025-07-22] MEDS ORDERED: SPIR-10 PO (19:11)
[2025-07-22] MEDS ORDERED: COLC0.6T53 PO (19:11)
[2025-07-22] MEDS ORDERED: HYDR50TA70 PO (19:11)
[2025-07-22] MEDS ORDERED: HOME MED LIST COMPLETE! XX SCH (19:15)
[2025-07-22] MEDS: lamoTRIgine 25 MG TAB PO SCH (20:29)
[2025-07-22] MEDS: lamoTRIgine 100 MG TAB PO SCH (20:29)
[2025-07-22] MEDS: COLCHICINE 0.6 MG TABLET PO SCH (20:31)
[2025-07-22 22:12] VITALS: TEMP 98
[2025-07-23 02:33] LABS: KETONE, URINE AUTO RFX NEGATIVE (NEGATIVE); LEUKOCYTE ESTERASE UR AUTO RFX NEGATIVE (NEGATIVE); NITRITE, URINE AUTO RFX NEGATIVE (NEGATIVE); RBC, URINE AUTO RFX 4 /HPF (0-3); SQUAM EPITHELIAL CELL UR AURFX 0 /HPF (0-6); WBC, URINE AUTO RFX 0 /HPF (0-3)
[2025-07-23] MEDS: LEVOTHYROXINE 75 MCG TABLET (0.075 MG) PO SCH (06:27)
[2025-07-23 07:50] LABS: BASO # 0.1 10^3/uL (0.0-0.2); BASO % 1.1 % (0.0-1.0); EOS # 0.1 10^3/uL (0.0-0.5); EOS % 2.4 % (0.0-3.0); LYMPH # 1.3 10^3/uL (1.5-5.0); LYMPH % 22.8 % (24.0-44.0); MONO # 0.6 10^3/uL (0.0-0.8); MONO % 10.9 % (2.0-8.0); NEUTROPHILS # 3.4 10^3/uL (1.5-8.5); NEUTROPHILS % 62.6 % (36.0-66.0); PLATELET COUNT, AUTOMATED 373 10^3/uL (150-450)
[2025-07-23 08:03] LABS: CALCIUM LEVEL 7.8 MG/DL (8.5-10.1); CARBON DIOXIDE LEVEL 27.0 MMOL/L (20-31); CHLORIDE LEVEL 105.0 MMOL/L (98-107); CREATININE FOR GFR 1.0 MG/DL (0.55-1.30); GLOMERULAR FILTRATION RATE 70.4 (>58); MAGNESIUM LEVEL 1.8 MG/DL (1.8-2.4); POTASSIUM SERUM 4.1 MMOL/L (3.5-5.1); SODIUM LEVEL 144.0 MMOL/L (136-145)
[2025-07-23] MEDS: CLOPIDOGREL 75 MG TAB PO SCH (08:44)
[2025-07-23 08:45] VITALS: BP 119/80
[2025-07-23] MEDS: MULTIVITAMINS/MINERALS THERAP 1 TAB PO SCH (08:45)
[2025-07-23] MEDS: SPIRONOLACTONE 25 MG TAB PO SCH (08:45)
[2025-07-23] MEDS: ATORVASTATIN 20 MG TAB PO SCH (08:45)
[2025-07-23] MEDS: ENOXAPARIN 40 MG/0.4 ML SYRINGE (J1650 PER 10MG) SC SCH (08:52)
[2025-07-23 13:01] VITALS: BP 114/69; O2SAT 96
[2025-07-23] MEDS ORDERED: COLC0.6T53 PO (14:01)
== END 2025-07-23 14:35 | disposition home or self-care (01) ==
LOC: EDBD 09:51 → M ED 09:51 → M ED INP 09:52
PROVIDERS: ADMIT Internal Medicine; ATTEND Internal Medicine
DX: R53.1 Weakness (principal); W19.XXXA Unspecified fall, initial encounter; Q90.9 Down syndrome, unspecified; Z86.73 Personal history of transient ischemic attack (TIA), and cerebral infarction without residual deficits; E78.5 Hyperlipidemia, unspecified; E03.9 Hypothyroidism, unspecified; G40.909 Epilepsy, unspecified, not intractable, without status epilepticus; F32.A Depression, unspecified; N18.30 Chronic kidney disease, stage 3 unspecified; R26.81 Unsteadiness on feet; R47.81 Slurred speech; G93.40 Encephalopathy, unspecified; Z79.899 Other long term (current) drug therapy; Z79.02 Long term (current) use of antithrombotics/antiplatelets
CPT/HCPCS: 36415; 70450; 70551; 71045; 71250; 80048; 80076; 81001; 82803; 83605; 83735; 83880; 84145; 85025; 87040; 87486; 87581; 87633; 87798; 93041; 94760; 96372; 99285; G0378; J2060

== ENCOUNTER 2025-07-31 10:58 | Inpatient (IN) | payer MEDICARE, BC, MEDICAID ==
[2025-07-31] VITALS (7 sets, daily range): BP systolic 103–147; BP diastolic 58–72; TEMP 97.4–97.6; O2SAT 92–97
[~2025-07-31] VITALS: Ht 152.4 cm; Wt 58.7 kg
[~2025-07-31 10:58] MED LIST changes: +ATOR80TA59 PO; +CITA10TA7 PO; +COLC0.6T53 PO; +HYDR50TA70 PO; +IBUP200T46 PO; +SPIR-10 PO
[2025-07-31 12:04] LABS: BASO # 0.1 10^3/uL (0.0-0.2); BASO % 1.3 % (0.0-1.0); EOS # 0.2 10^3/uL (0.0-0.5); EOS % 2.4 % (0.0-3.0); LYMPH # 1.6 10^3/uL (1.5-5.0); LYMPH % 20.9 % (24.0-44.0); MONO # 0.8 10^3/uL (0.0-0.8); MONO % 10.3 % (2.0-8.0); NEUTROPHILS # 4.9 10^3/uL (1.5-8.5); NEUTROPHILS % 64.6 % (36.0-66.0); PLATELET COUNT, AUTOMATED 404 10^3/uL (150-450)
[2025-07-31 12:18] LABS: ALT/SGPT 16.0 U/L (7.0-40); AST/SGOT 30.0 U/L (<34); CALCIUM LEVEL 8.2 MG/DL (8.5-10.1); CARBON DIOXIDE LEVEL 30.0 MMOL/L (20-31); CHLORIDE LEVEL 105.0 MMOL/L (98-107); CREATININE FOR GFR 1.06 MG/DL (0.55-1.30); GLOMERULAR FILTRATION RATE 65.6 (>58); MAGNESIUM LEVEL 1.9 MG/DL (1.8-2.4); POTASSIUM SERUM 3.9 MMOL/L (3.5-5.1); SODIUM LEVEL 144.0 MMOL/L (136-145)
[2025-07-31 13:27] LABS: CK-MB VALUE MASS 2.2 NG/ML (<3.6)
[2025-07-31 13:32] LABS: CPK CREATINE PHOSPHOKINASE 119.0 U/L (34-145); MB/CK RELATIVE INDEX 1.84 (< OR =4)
[2025-07-31 14:18] LABS: KETONE, URINE AUTO RFX NEGATIVE (NEGATIVE); LEUKOCYTE ESTERASE UR AUTO RFX 2+ (NEGATIVE); NITRITE, URINE AUTO RFX NEGATIVE (NEGATIVE); RBC, URINE AUTO RFX 5 /HPF (0-3); SQUAM EPITHELIAL CELL UR AURFX 1 /HPF (0-6); WBC, URINE AUTO RFX TNTC /HPF (0-3)
[2025-07-31 14:24] LABS: CK-MB VALUE MASS 1.5 NG/ML (<3.6)
[2025-07-31 14:25] LABS: CPK CREATINE PHOSPHOKINASE 105.0 U/L (34-145); MB/CK RELATIVE INDEX 1.42 (< OR =4)
[2025-07-31] MEDS ORDERED: CIPROFLOXACIN 400 MG in IV 1 EA IV ONE (14:35)
[2025-07-31] MEDS ORDERED: COLC0.6T53 PO (14:57)
[2025-07-31] MEDS ORDERED: ACET-1349 PO (14:57)
[2025-07-31] MEDS ORDERED: HYDR-3363 PO (15:14)
[2025-07-31] MEDS: LevoFLOXacin IV 750 MG in IV 1 EA IV ONE (15:40)
[2025-07-31] MEDS ORDERED: HOME MED LIST COMPLETE! XX SCH (16:15)
[2025-07-31] MEDS ORDERED: ACETAMINOPHEN 325 MG TAB PO PRN (16:20)
[2025-07-31] MEDS: FUROSEMIDE 40 MG/4 ML VIAL IV SCH (17:00)
[2025-07-31] MEDS: HALOPERIDOL LACTATE 5 MG/ML VIAL IV PRN (17:35)
[2025-07-31 19:47] LABS: RHEUMATOID FACTOR QUANT < 3.5 IU/ML (<14)
[2025-07-31 19:51] LABS: FREE T4 1.29 NG/DL (0.89-1.76)
[2025-07-31 19:59] LABS: C REACTIVE PROTEIN QUANTITATIV 10.52 MG/DL (<1.0)
[2025-07-31 20:21] LABS: HIV 1&2 SCREEN NEGATIVE (NEGATIVE)
[2025-07-31 20:27] LABS: HEPATITIS C VIRUS ABY INDEX 0.03 INDEX (<0.8)
[2025-07-31] MEDS: lamoTRIgine 100 MG TAB PO SCH (21:00)
[2025-07-31] MEDS: lamoTRIgine 25 MG TAB PO SCH (21:00)
[2025-07-31] MEDS: levETIRAcetam INJection 750 MG in D5W 100 ML IV ONE (21:51)
[2025-07-31] MEDS: OLANZapine INTRAMUSCULAR 10MG VIAL IM ONE (22:15)
[2025-07-31] MEDS: MAG SULF 1GM/100ML (MAG RUN) 1 GM in IV 1 EA IV ONE (22:18)
[2025-08-01] VITALS (8 sets, daily range): BP systolic 92–119; BP diastolic 55–74; TEMP 97.6–99; O2SAT 84–100
[2025-08-01] MEDS: LEVOTHYROXINE 75 MCG TABLET (0.075 MG) PO SCH (05:25)
[2025-08-01 08:43] LABS: BASO # 0.1 10^3/uL (0.0-0.2); BASO % 1.1 % (0.0-1.0); EOS # 0.1 10^3/uL (0.0-0.5); EOS % 0.6 % (0.0-3.0); LYMPH # 1.0 10^3/uL (1.5-5.0); LYMPH % 11.1 % (24.0-44.0); MONO # 1.1 10^3/uL (0.0-0.8); MONO % 11.8 % (2.0-8.0); NEUTROPHILS # 7.1 10^3/uL (1.5-8.5); NEUTROPHILS % 75.1 % (36.0-66.0); PLATELET COUNT, AUTOMATED 436 10^3/uL (150-450)
[2025-08-01] MEDS: SPIRONOLACTONE 25 MG TAB PO SCH (09:00)
[2025-08-01] MEDS: MULTIVITAMINS/MINERALS THERAP 1 TAB PO SCH (09:00)
[2025-08-01 09:24] LABS: ALT/SGPT 16.0 U/L (7.0-40); AST/SGOT 31.0 U/L (<34); CALCIUM LEVEL 8.6 MG/DL (8.5-10.1); CARBON DIOXIDE LEVEL 34.0 MMOL/L (20-31); CHLORIDE LEVEL 99.0 MMOL/L (98-107); CREATININE FOR GFR 1.16 MG/DL (0.55-1.30); GLOMERULAR FILTRATION RATE 58.9 (>58); MAGNESIUM LEVEL 2.1 MG/DL (1.8-2.4); POTASSIUM SERUM 3.9 MMOL/L (3.5-5.1); SODIUM LEVEL 141.0 MMOL/L (136-145)
[2025-08-01] MEDS: ENOXAPARIN 40 MG/0.4 ML SYRINGE (J1650 PER 10MG) SC SCH (12:37)
[2025-08-01] MEDS: CLOPIDOGREL 75 MG TAB PO SCH (13:14)
[2025-08-01] MEDS: COLCHICINE 0.6 MG TABLET PO SCH (13:14)
[2025-08-01] MEDS: ATORVASTATIN 20 MG TAB PO SCH (13:14)
[2025-08-01] MEDS: levETIRAcetam INJection 750 MG in D5W 100 ML IV SCH (13:21)
[2025-08-01] MEDS ORDERED: PROHANCE 279.3MG/ML 15ML VIAL As Ordered ONE (14:36)
[2025-08-01] MEDS: LevoFLOXacin IV 750 MG in IV 1 EA IV SCH (16:30)
[2025-08-02 03:13] VITALS: BP 112/61; TEMP 98.9; O2SAT 93
[2025-08-02 05:08] LABS: BASO # 0.1 10^3/uL (0.0-0.2); BASO % 1.2 % (0.0-1.0); EOS # 0.1 10^3/uL (0.0-0.5); EOS % 0.7 % (0.0-3.0); LYMPH # 1.9 10^3/uL (1.5-5.0); LYMPH % 22.4 % (24.0-44.0); MONO # 1.0 10^3/uL (0.0-0.8); MONO % 12.2 % (2.0-8.0); NEUTROPHILS # 5.3 10^3/uL (1.5-8.5); NEUTROPHILS % 63.0 % (36.0-66.0); PLATELET COUNT, AUTOMATED 456 10^3/uL (150-450)
[2025-08-02 05:31] LABS: ALT/SGPT 15.0 U/L (7.0-40); AST/SGOT 37.0 U/L (<34); CALCIUM LEVEL 8.0 MG/DL (8.5-10.1); CARBON DIOXIDE LEVEL 29.0 MMOL/L (20-31); CHLORIDE LEVEL 100.0 MMOL/L (98-107); CREATININE FOR GFR 1.11 MG/DL (0.55-1.30); GLOMERULAR FILTRATION RATE 62.1 (>58); MAGNESIUM LEVEL 1.8 MG/DL (1.8-2.4); POTASSIUM SERUM 4.2 MMOL/L (3.5-5.1); SODIUM LEVEL 140.0 MMOL/L (136-145)
[2025-08-02 06:59] VITALS: BP 119/74; TEMP 98.8; O2SAT 100
[2025-08-02] MEDS: NITROFURANTOIN 100 MG CAP PO SCH (09:27)
[2025-08-02] MEDS: FUROSEMIDE 40 MG/4 ML VIAL IV SCH (09:33)
[2025-08-02 11:37] VITALS: BP 103/62; TEMP 99; O2SAT 91
[2025-08-02 15:55] VITALS: BP 105/73; TEMP 99.3; O2SAT 94
[2025-08-02 16:02] VITALS: BP 105/73
[2025-08-02 19:34] VITALS: BP 110/67; TEMP 97.4; O2SAT 93
[2025-08-03] VITALS: BP 116/75; TEMP 98.1; O2SAT 93
[2025-08-03 04:05] VITALS: BP 122/72; TEMP 97.2; O2SAT 91
[2025-08-03 05:39] LABS: BASO # 0.1 10^3/uL (0.0-0.2); BASO % 1.0 % (0.0-1.0); EOS # 0.1 10^3/uL (0.0-0.5); EOS % 0.9 % (0.0-3.0); LYMPH # 1.9 10^3/uL (1.5-5.0); LYMPH % 21.7 % (24.0-44.0); MONO # 1.2 10^3/uL (0.0-0.8); MONO % 14.3 % (2.0-8.0); NEUTROPHILS # 5.3 10^3/uL (1.5-8.5); NEUTROPHILS % 61.5 % (36.0-66.0); PLATELET COUNT, AUTOMATED 436 10^3/uL (150-450)
[2025-08-03 06:05] LABS: ALT/SGPT 14.0 U/L (7.0-40); AST/SGOT 33.0 U/L (<34); CALCIUM LEVEL 8.6 MG/DL (8.5-10.1); CARBON DIOXIDE LEVEL 31.0 MMOL/L (20-31); CHLORIDE LEVEL 100.0 MMOL/L (98-107); CREATININE FOR GFR 1.21 MG/DL (0.55-1.30); GLOMERULAR FILTRATION RATE 56.0 (>58); MAGNESIUM LEVEL 1.7 MG/DL (1.8-2.4); POTASSIUM SERUM 3.9 MMOL/L (3.5-5.1); SODIUM LEVEL 142.0 MMOL/L (136-145)
[2025-08-03 08:00] VITALS: BP 100/73; TEMP 97.5; O2SAT 94
[2025-08-03] MEDS: MAG SULF 1GM/100ML (MAG RUN) 1 GM in IV 1 EA IV SCH (09:36)
[2025-08-03] MEDS: FLEET ENEMA PR ONE (12:28)
[2025-08-03] MEDS: HALOPERIDOL LACTATE 5 MG/ML VIAL IV ONE (14:25)
[2025-08-03 16:11] VITALS: BP 99/72; O2SAT 93
[2025-08-03 16:15] VITALS: TEMP 97.5
[2025-08-03 20:17] VITALS: BP 124/80; TEMP 97.6; O2SAT 94
[2025-08-04 00:03] VITALS: BP 102/60; TEMP 97.8; O2SAT 94
[2025-08-04 04:08] VITALS: BP 103/67; TEMP 97.4; O2SAT 96
[2025-08-04 05:44] LABS: BASO # 0.1 10^3/uL (0.0-0.2); BASO % 1.8 % (0.0-1.0); EOS # 0.1 10^3/uL (0.0-0.5); EOS % 1.1 % (0.0-3.0); LYMPH # 1.5 10^3/uL (1.5-5.0); LYMPH % 20.5 % (24.0-44.0); MONO # 0.9 10^3/uL (0.0-0.8); MONO % 12.8 % (2.0-8.0); NEUTROPHILS # 4.6 10^3/uL (1.5-8.5); NEUTROPHILS % 63.4 % (36.0-66.0); PLATELET COUNT, AUTOMATED 431 10^3/uL (150-450)
[2025-08-04 06:11] LABS: ALT/SGPT 14.0 U/L (7.0-40); AST/SGOT 34.0 U/L (<34); CALCIUM LEVEL 8.5 MG/DL (8.5-10.1); CARBON DIOXIDE LEVEL 32.0 MMOL/L (20-31); CHLORIDE LEVEL 99.0 MMOL/L (98-107); CREATININE FOR GFR 1.12 MG/DL (0.55-1.30); GLOMERULAR FILTRATION RATE 61.4 (>58); MAGNESIUM LEVEL 2.3 MG/DL (1.8-2.4); POTASSIUM SERUM 3.4 MMOL/L (3.5-5.1); SODIUM LEVEL 142.0 MMOL/L (136-145)
[2025-08-04 08:00] VITALS: BP 130/98; TEMP 97.5; O2SAT 98
[2025-08-04] MEDS: POTASSIUM CHLORIDE 10MEQ SR TABLET PO ONE (08:52)
[2025-08-04] MEDS ORDERED: NITR100C2 PO (09:22)
== END 2025-08-04 11:28 | disposition home or self-care (01) | DRG 314 ==
LOC: EDBD 10:58 → M ED 10:58 → M ED INP 17:16 → M ICU 20:09 → M PCU 08-01 18:02
PROVIDERS: ADMIT Internal Medicine; ATTEND Internal Medicine
DX: I30.1 Infective pericarditis (principal); G93.41 Metabolic encephalopathy; G04.90 Encephalitis and encephalomyelitis, unspecified; N39.0 Urinary tract infection, site not specified; E03.9 Hypothyroidism, unspecified; N18.30 Chronic kidney disease, stage 3 unspecified; F41.9 Anxiety disorder, unspecified; D64.9 Anemia, unspecified; F32.A Depression, unspecified; Q90.9 Down syndrome, unspecified; M32.12 Pericarditis in systemic lupus erythematosus; F03.90 Unspecified dementia, unspecified severity, without behavioral disturbance, psychotic disturbance, mood disturbance, and anxiety; G40.909 Epilepsy, unspecified, not intractable, without status epilepticus; M32.9 Systemic lupus erythematosus, unspecified; E78.5 Hyperlipidemia, unspecified; Z86.73 Personal history of transient ischemic attack (TIA), and cerebral infarction without residual deficits; B96.20 Unspecified Escherichia coli [E. coli] as the cause of diseases classified elsewhere; Z79.899 Other long term (current) drug therapy; Z79.890 Hormone replacement therapy; Z66 Do not resuscitate; Z88.2 Allergy status to sulfonamides; Z88.8 Allergy status to other drugs, medicaments and biological substances; Z88.7 Allergy status to serum and vaccine

== ENCOUNTER → 2025-08-14 | Outpatient (REF) | payer MEDICARE, BC, MEDICAID ==
[~2025-08-14] MED LIST changes: +ACET-1349 PO; +HYDR-3363 PO; +NITR100C2 PO
[2025-08-14 18:09] LABS: BASO # 0.1 10^3/uL (0.0-0.2); BASO % 1.7 % (0.0-1.0); EOS # 0.0 10^3/uL (0.0-0.5); EOS % 0.5 % (0.0-3.0); LYMPH # 1.6 10^3/uL (1.5-5.0); LYMPH % 24.6 % (24.0-44.0); MONO # 0.5 10^3/uL (0.0-0.8); MONO % 8.1 % (2.0-8.0); NEUTROPHILS # 4.2 10^3/uL (1.5-8.5); NEUTROPHILS % 64.8 % (36.0-66.0); PLATELET COUNT, AUTOMATED 405 10^3/uL (150-450)
[2025-08-14 18:18] LABS: ALT/SGPT 25.0 U/L (7.0-40); AST/SGOT 55.0 U/L (<34); CALCIUM LEVEL 8.3 MG/DL (8.5-10.1); CARBON DIOXIDE LEVEL 30.0 MMOL/L (20-31); CHLORIDE LEVEL 104.0 MMOL/L (98-107); CREATININE FOR GFR 1.1 MG/DL (0.55-1.30); GLOMERULAR FILTRATION RATE 62.8 (>58); MAGNESIUM LEVEL 1.9 MG/DL (1.8-2.4); POTASSIUM SERUM 3.3 MMOL/L (3.5-5.1); SODIUM LEVEL 146.0 MMOL/L (136-145)
== END ==
LOC: M SFHCCLAY 10:41
PROVIDERS: ATTEND Nurse Practitioner Family
DX: N30.00 Acute cystitis without hematuria (principal); I31.39 Other pericardial effusion (noninflammatory); R63.0 Anorexia; G40.A09 Absence epileptic syndrome, not intractable, without status epilepticus
CPT/HCPCS: 80053; 80177; 83735; 85025; G0463

== ENCOUNTER → 2025-08-27 | Outpatient (CLI) | payer MEDICARE, BC, MEDICAID ==
[~2025-08-27] MED LIST changes: +REXU1TAB2 PO
== END ==
LOC: M PLALAB 07:52
PROVIDERS: ATTEND Student in an Organized Health Care Education/Training Program
DX: G40.319 Generalized idiopathic epilepsy and epileptic syndromes, intractable, without status epilepticus (principal)

== ENCOUNTER 2025-09-04 13:59 | Emergency (ER) | payer MEDICARE, BC, MEDICAID ==
[~2025-09-04] VITALS: Ht 152.4 cm; Wt 57.4 kg
[~2025-09-04 13:59] MED LIST changes: -REXU1TAB2 PO
[2025-09-04 14:02] VITALS: BP 114/64; O2SAT 100
[2025-09-04 16:39] VITALS: TEMP 97.5
[2025-09-16] MEDS ORDERED: REXU1TAB2 PO (14:27)
== END 2025-09-04 16:42 | disposition home or self-care (01) ==
LOC: M ED 13:59
DX: S09.90XA Unspecified injury of head, initial encounter (principal); W01.198A Fall on same level from slipping, tripping and stumbling with subsequent striking against other object, initial encounter; M50.30 Other cervical disc degeneration, unspecified cervical region; M43.12 Spondylolisthesis, cervical region; Z79.01 Long term (current) use of anticoagulants; Z88.1 Allergy status to other antibiotic agents; Z88.2 Allergy status to sulfonamides; Z88.7 Allergy status to serum and vaccine; Z79.02 Long term (current) use of antithrombotics/antiplatelets; Z79.899 Other long term (current) drug therapy; Z79.1 Long term (current) use of non-steroidal anti-inflammatories (NSAID); Y93.89 Activity, other specified; Y99.9 Unspecified external cause status
CPT/HCPCS: 70450; 72125; 80048; 82728; 83550; 85025; 99283; G0463

== ENCOUNTER → 2025-09-04 | Outpatient (REF) | payer MEDICARE, BC, MEDICAID ==
[2025-09-04 17:42] LABS: BASO # 0.1 10^3/uL (0.0-0.2); BASO % 1.4 % (0.0-1.0); EOS # 0.1 10^3/uL (0.0-0.5); EOS % 1.6 % (0.0-3.0); LYMPH # 1.4 10^3/uL (1.5-5.0); LYMPH % 24.0 % (24.0-44.0); MONO # 0.5 10^3/uL (0.0-0.8); MONO % 8.9 % (2.0-8.0); NEUTROPHILS # 3.7 10^3/uL (1.5-8.5); NEUTROPHILS % 63.8 % (36.0-66.0); PLATELET COUNT, AUTOMATED 361 10^3/uL (150-450)
[2025-09-04 18:14] LABS: CALCIUM LEVEL 8.4 MG/DL (8.5-10.1); CARBON DIOXIDE LEVEL 33.0 MMOL/L (20-31); CHLORIDE LEVEL 104.0 MMOL/L (98-107); CREATININE FOR GFR 0.88 MG/DL (0.55-1.30); GLOMERULAR FILTRATION RATE 82.0 (>58); IRON (FE) 58.0 UG/DL (50-170); PERCENT SATURATION 22.7 % (13.2-45.0); POTASSIUM SERUM 4.2 MMOL/L (3.5-5.1); SODIUM LEVEL 142.0 MMOL/L (136-145)
== END ==
LOC: M SFHCCLAY 09:44
PROVIDERS: ATTEND Nurse Practitioner Family
DX: D64.9 Anemia, unspecified (principal); E87.6 Hypokalemia

== ENCOUNTER → 2025-09-16 | Outpatient (CLI) | payer MEDICARE, BC, MEDICAID ==
[~2025-09-16] MED LIST changes: +REXU1TAB2 PO
== END ==
LOC: M PAL 14:19
PROVIDERS: ATTEND Family Medicine
DX: Z51.5 Encounter for palliative care (principal); F03.90 Unspecified dementia, unspecified severity, without behavioral disturbance, psychotic disturbance, mood disturbance, and anxiety; Z86.73 Personal history of transient ischemic attack (TIA), and cerebral infarction without residual deficits; Q90.9 Down syndrome, unspecified; F79 Unspecified intellectual disabilities; Z88.2 Allergy status to sulfonamides; Z88.6 Allergy status to analgesic agent; Z88.8 Allergy status to other drugs, medicaments and biological substances; Z79.899 Other long term (current) drug therapy; Z79.02 Long term (current) use of antithrombotics/antiplatelets